=== PATIENT | male | born 1965 | race Caucasian/White ===

== ENCOUNTER 2020-11-09 22:38 | Inpatient (IN) | payer MEDICAID ==
[~2020-11-09] VITALS: Ht 172.7 cm; Wt 83.3 kg
[2020-11-10] MEDS ORDERED: ONDANSETRON HCL 4 MG/2 ML VIAL ONE (01:12)
[2020-11-10] MEDS ORDERED: KETOROLAC TROMETH 30 MG/ML 1ML VIAL IV ONE (01:15)
[2020-11-10] MEDS ORDERED: ONDANSETRON HCL 4 MG/2 ML VIAL IV ONE (01:15)
[2020-11-10] MEDS ORDERED: fentaNYL CITRATE 100 MCG/2 ML VL IV ONE (01:15)
[2020-11-10] MEDS ORDERED: SODIUM CHLORIDE 0.9% 1,000 ML IV ONE (01:15)
[2020-11-10 02:10] LABS: Eosinophils # (auto) 0.1 10 ^3/uL (0-0.8); Lymphocytes # (auto) 2.3 10 ^3/uL (0.4-5.4)
[2020-11-10 02:11] LABS: Basophils # (auto) 0 10 ^3/uL (0-0.2); Basophils % (auto) 0.3 % (0.0-2.0); Eosinophils % (auto) 0.5 % (0.0-7.0); Hematocrit 39.3 % (41.0-53.0); Hemoglobin 13.7 g/dL (13.5-17.5); Lymphocytes % (auto) 15.5 % (10.0-50.0); Mean Corpuscular Hemoglobin 34.4 pg (28.0-32.0); Mean Corpuscular Hgb Conc. 34.9 g/dL (32.0-36.0); Mean Corpuscular Volume 98.3 fL (80.0-100.0); Monocytes # (auto) 0.9 10 ^3/uL (0-1.3); Monocytes % (auto) 6.4 % (0.0-12.0); Neutrophils # (auto) 11.3 10 ^3/uL (1.6-8.6); Neutrophils % (auto) 77.3 % (37.0-80.0); Platelet Count (auto) 456 10^3/uL (140-450); Red Blood Cells 3.99 10^6/uL (4.5-5.90); Red Cell Distribution Width 13.1 % (11.8-14.3); White Blood Cell 14.7 10^3/uL (4.4-10.8)
[2020-11-10 02:23] LABS: INR 0.99 (0.9-1.15)
[2020-11-10 02:29] LABS: Albumin 3.6 g/dL (3.4-5.0); BUN/Creatinine Ratio 15.1; Calcium 8.5 mg/dL (8.5-10.1); Magnesium 2.2 mg/dL (1.6-2.6); Potassium 3.8 mmol/L (3.5-5.1)
[2020-11-10 02:31] LABS: Bilirubin, Total 0.2 mg/dL (0.2-1.0); Total Protein 7.2 g/dL (6.4-8.2)
[2020-11-10] MEDS ORDERED: ONDANSETRON HCL 4 MG/2 ML VIAL IV PRN (03:00)
[2020-11-10] MEDS ORDERED: chlordiazePOXIDE HCL 25 MG CAP PO PRN (03:15)
[2020-11-10] MEDS: HYDROcodone-ACET 5/325MG TAB PO PRN ×4 (09:18→21:15)
[2020-11-10] MEDS: FAMOTIDINE 20 MG TAB PO SCH ×2 (09:18→21:06)
[2020-11-10] MEDS: FOLIC ACID 1 MG, MAGNESIUM SULF SDV 50% 8 MEQ, THIAMINE INJ 100 MG in SODIUM CHLORIDE 0... INJ SCH (09:44)
[2020-11-10 10:02] LABS: Urine Bacteria NONE SEEN /hpf (None Seen); Urine Blood Negative /uL (Negative); Urine Specific Gravity 1.021 (1.001-1.035); Urine Sperm PRESENT /hpf (None Seen); Urine WBC <1 /hpf (0 - 3)
[2020-11-10 10:05] LABS: Amphetamine Screen, Urine POSITIVE (NEGATIVE); Barbiturate Scree,Urine NEGATIVE (NEGATIVE); Benzodiazephine Screen, Urine NEGATIVE (NEGATIVE); Cannabinoid Screen, Urine POSITIVE (NEGATIVE); Cocaine Screen, Urine NEGATIVE (NEGATIVE); Phencyclidine Screen, Urine NEGATIVE (NEGATIVE)
[2020-11-10 10:14] LABS: Opiate Scree,Urine NEGATIVE (NEGATIVE)
[2020-11-10] MEDS ORDERED: GABA250S2 PO (14:17)
[2020-11-10] MEDS: MORPHINE SULFATE 4 MG/ML SYR/VIAL IV PRN (15:16)
[2020-11-10 16:00] VITALS: BP 140/80
[2020-11-10 17:02] LABS: Hepatitis B Surface Antibody Negative
[2020-11-10 17:41] LABS: Hepatitis A Total Antibody Negative
[2020-11-10] MEDS ORDERED: FUROSEMIDE 20 MG/2 ML VIAL IV ONE (18:15)
[2020-11-10 18:28] LABS: Hepatitis B Surface Antigen Negative (Negative)
[2020-11-10 18:29] LABS: Hepatitis B Core Total AB Negative; Hepatitis C Antibody Negative (Negative)
[2020-11-10 22:04] VITALS: BP 132/88
[2020-11-11] MEDS: TEMAZEPAM 15 MG CAP PO PRN (00:19)
[2020-11-11] MEDS: HYDROcodone-ACET 5/325MG TAB PO PRN ×3 (02:45→21:35)
[2020-11-11 05:11] VITALS: BP 130/94
[2020-11-11 05:41] LABS: Eosinophils # (auto) 0.1 10 ^3/uL (0-0.8)
[2020-11-11 05:45] LABS: Basophils # (auto) 0.1 10 ^3/uL (0-0.2); Basophils % (auto) 0.4 % (0.0-2.0); Hematocrit 40.6 % (41.0-53.0); Hemoglobin 14.2 g/dL (13.5-17.5); Lymphocytes # (auto) 2.1 10 ^3/uL (0.4-5.4); Lymphocytes % (auto) 15.7 % (10.0-50.0); Mean Corpuscular Hemoglobin 34.1 pg (28.0-32.0); Mean Corpuscular Hgb Conc. 34.9 g/dL (32.0-36.0); Mean Corpuscular Volume 97.9 fL (80.0-100.0); Monocytes % (auto) 7.4 % (0.0-12.0); Neutrophils # (auto) 10.1 10 ^3/uL (1.6-8.6); Neutrophils % (auto) 75.5 % (37.0-80.0); Platelet Count (auto) 448 10^3/uL (140-450); Red Blood Cells 4.15 10^6/uL (4.5-5.90); Red Cell Distribution Width 13.2 % (11.8-14.3); White Blood Cell 13.4 10^3/uL (4.4-10.8)
[2020-11-11 05:59] LABS: BUN/Creatinine Ratio 10.4; Calcium 8.4 mg/dL (8.5-10.1); Potassium 3.7 mmol/L (3.5-5.1)
[2020-11-11] MEDS ORDERED: FUROSEMIDE 20 MG/2 ML VIAL IV SCH (06:00)
[2020-11-11] MEDS: MORPHINE SULFATE 4 MG/ML SYR/VIAL IV PRN ×3 (06:54→19:02)
[2020-11-11 08:00] VITALS: BP 151/87
[2020-11-11] MEDS: FAMOTIDINE 20 MG TAB PO SCH (10:31)
[2020-11-11] MEDS: ENOXAPARIN SOD 40 MG/0.4 ML SYRINGE SC SCH (11:38)
[2020-11-11] MEDS: FOLIC ACID 1 MG, MAGNESIUM SULF SDV 50% 8 MEQ, THIAMINE INJ 100 MG in SODIUM CHLORIDE 0... INJ SCH (15:38)
[2020-11-11 17:00] VITALS: BP 136/88
[2020-11-11] MEDS ORDERED: HCTZ 25 MG TAB PO ONE (17:00)
[2020-11-11 22:00] VITALS: BP 138/93
[2020-11-12 05:00] VITALS: BP 131/71
[2020-11-12 09:09] VITALS: BP 127/89
[2020-11-12] MEDS: HCTZ 25 MG TAB PO SCH (11:50)
[2020-11-12] MEDS: HYDROcodone-ACET 5/325MG TAB PO PRN (11:50)
[2020-11-12] MEDS: ENOXAPARIN SOD 40 MG/0.4 ML SYRINGE SC SCH (11:51)
[2020-11-12] MEDS: FOLIC ACID 1 MG, MAGNESIUM SULF SDV 50% 8 MEQ, THIAMINE INJ 100 MG in SODIUM CHLORIDE 0... INJ SCH (12:00)
[2020-11-12] MEDS: MORPHINE SULFATE 4 MG/ML SYR/VIAL IV PRN ×3 (13:17→22:21)
[2020-11-12] MEDS: FAMOTIDINE 20 MG TAB PO SCH ×2 (15:49→22:22)
[2020-11-12 17:00] VITALS: BP 115/71
[2020-11-12 22:00] VITALS: BP 123/85
[2020-11-13] MEDS: TEMAZEPAM 15 MG CAP PO PRN ×2 (00:14→20:31)
[2020-11-13] MEDS: MORPHINE SULFATE 4 MG/ML SYR/VIAL IV PRN ×4 (04:46→20:29)
[2020-11-13 05:00] VITALS: BP 132/77
[2020-11-13 08:00] VITALS: BP 102/68
[2020-11-13 08:48] LABS: Basophils # (auto) 0.1 10 ^3/uL (0-0.2); Hemoglobin 15.6 g/dL (13.5-17.5)
[2020-11-13 08:51] LABS: Basophils % (auto) 0.6 % (0.0-2.0); Eosinophils # (auto) 0.1 10 ^3/uL (0-0.8); Eosinophils % (auto) 1.2 % (0.0-7.0); Hematocrit 43.8 % (41.0-53.0); Lymphocytes # (auto) 2.6 10 ^3/uL (0.4-5.4); Lymphocytes % (auto) 22.1 % (10.0-50.0); Mean Corpuscular Hemoglobin 34.9 pg (28.0-32.0); Mean Corpuscular Hgb Conc. 35.5 g/dL (32.0-36.0); Mean Corpuscular Volume 98.2 fL (80.0-100.0); Monocytes # (auto) 1.2 10 ^3/uL (0-1.3); Monocytes % (auto) 10.4 % (0.0-12.0); Neutrophils # (auto) 7.8 10 ^3/uL (1.6-8.6); Neutrophils % (auto) 65.7 % (37.0-80.0); Nucleated Red Blood Cells % 0.1 %; Platelet Count (auto) 493 10^3/uL (140-450); Red Blood Cells 4.46 10^6/uL (4.5-5.90); Red Cell Distribution Width 13.1 % (11.8-14.3); White Blood Cell 11.9 10^3/uL (4.4-10.8)
[2020-11-13 09:15] LABS: Calcium 9.3 mg/dL (8.5-10.1)
[2020-11-13] MEDS: HCTZ 25 MG TAB PO SCH (09:48)
[2020-11-13] MEDS: FAMOTIDINE 20 MG TAB PO SCH ×2 (09:48→22:00)
[2020-11-13] MEDS ORDERED: cefTRIAXone 1GM/50ML D5W 50 ML IV ONE (15:45)
[2020-11-13 16:00] VITALS: BP 119/69
[2020-11-13] MEDS: HYDROcodone-ACET 5/325MG TAB PO PRN (18:11)
[2020-11-13 22:00] VITALS: BP 113/72
[2020-11-13] MEDS: ACETAMINOPHEN 325 MG TAB PO PRN (23:09)
[2020-11-14] MEDS: MORPHINE SULFATE 4 MG/ML SYR/VIAL IV PRN ×10 (00:49→22:33)
[2020-11-14 05:00] VITALS: BP 124/77
[2020-11-14] MEDS ORDERED: BUPIVACAINE 0.25% INJ 50ML VIAL ONE (07:08)
[2020-11-14] MEDS ORDERED: ceFAZolin 1GM/50ML 100 ML IV ONE (07:09)
[2020-11-14] MEDS ORDERED: BUPIVACAINE W/ EPINEPH 0.25% INJ 50ML MDV ONE (07:10)
[2020-11-14] MEDS ORDERED: TETRACAINE 1% INJ 2 ML VIAL IJ ONE (07:16)
[2020-11-14] MEDS ORDERED: LIDOCAINE 1% HCL (LOCAL ANESTH.) INJ 20ML MDV ONE (07:16)
[2020-11-14] MEDS ORDERED: ONDANSETRON HCL 4 MG/2 ML VIAL ONE (07:19)
[2020-11-14] MEDS ORDERED: SODIUM CHLORIDE LOCK 10 ML ONE (07:19)
[2020-11-14] MEDS ORDERED: PROPOFOL 10 MG/ML 20 ML IV ONE (07:19)
[2020-11-14] MEDS ORDERED: fentaNYL CITRATE 100 MCG/2 ML VL ONE (07:19)
[2020-11-14] MEDS ORDERED: MORPHINE SULF(PF) 0.5MG/ML 10ML VIAL ONE (07:19)
[2020-11-14] MEDS ORDERED: MIDAZOLAM HCL 1MG/1ML-2 ML VIAL ONE (07:19)
[2020-11-14] MEDS ORDERED: BUPIVACAINE/DEXTROSE MPF 0.75% 2 ML AMP IT ONE (07:25)
[2020-11-14] MEDS ORDERED: EPINEPHrine HCL 1 MG/1 ML AMP ONE (07:25)
[2020-11-14 08:00] VITALS: BP 103/70
[2020-11-14] MEDS ORDERED: KETAMINE HCL 10 ML ONE (08:33)
[2020-11-14] MEDS ORDERED: LIDOCAINE 2%HCL (LOCAL ANESTH.) INJ 20ML MDV ONE (08:40)
[2020-11-14] MEDS: cefTRIAXone 1GM/50ML D5W 50 ML IV SCH (09:00)
[2020-11-14] MEDS ORDERED: MORPHINE SULFATE 4 MG/ML SYR/VIAL IV PRN (09:30)
[2020-11-14] MEDS ORDERED: ONDANSETRON HCL 4 MG/2 ML VIAL IV PRN (09:30)
[2020-11-14] MEDS ORDERED: HYDROmorphone HCL 2 MG/ML VL IV PRN (09:30)
[2020-11-14] MEDS: LACTATED RINGER'S 1,000 ML IV SCH ×2 (10:00→19:15)
[2020-11-14] MEDS: ceFAZolin 1GM/50ML 50 ML IV SCH ×3 (10:00→21:04)
[2020-11-14] MEDS: FAMOTIDINE 20 MG TAB PO SCH ×2 (10:20→22:00)
[2020-11-14] MEDS: HCTZ 25 MG TAB PO SCH (10:20)
[2020-11-14] MEDS: ENOXAPARIN SOD 40 MG/0.4 ML SYRINGE SC SCH (10:20)
[2020-11-14] MEDS: SODIUM CHLOR 0.9% PF (SALINE LOCK) 10ML VIAL/SYR IV SCH ×2 (14:00→22:00)
[2020-11-14 16:00] VITALS: BP 130/79
[2020-11-14] MEDS: HYDROcodone-ACET 5/325MG TAB PO PRN (21:00)
[2020-11-14] MEDS: TEMAZEPAM 15 MG CAP PO PRN (21:00)
[2020-11-14 22:00] VITALS: BP 153/86
[2020-11-15] MEDS: MORPHINE SULFATE 4 MG/ML SYR/VIAL IV PRN ×4 (02:35→22:28)
[2020-11-15 05:00] VITALS: BP 117/76
[2020-11-15] MEDS: LACTATED RINGER'S 1,000 ML IV SCH ×2 (05:04→14:15)
[2020-11-15] MEDS: HYDROcodone-ACET 5/325MG TAB PO PRN ×2 (05:05→14:28)
[2020-11-15] MEDS: SODIUM CHLOR 0.9% PF (SALINE LOCK) 10ML VIAL/SYR IV SCH ×3 (05:33→22:27)
[2020-11-15 06:50] LABS: Basophils # (auto) 0 10 ^3/uL (0-0.2); Eosinophils # (auto) 0.2 10 ^3/uL (0-0.8); Eosinophils % (auto) 1.4 % (0.0-7.0); Monocytes # (auto) 1.6 10 ^3/uL (0-1.3)
[2020-11-15 07:02] LABS: Basophils % (auto) 0.3 % (0.0-2.0); Hematocrit 38.9 % (41.0-53.0); Hemoglobin 13.7 g/dL (13.5-17.5); Lymphocytes # (auto) 1.9 10 ^3/uL (0.4-5.4); Lymphocytes % (auto) 13.7 % (10.0-50.0); Mean Corpuscular Hemoglobin 34.4 pg (28.0-32.0); Mean Corpuscular Hgb Conc. 35.2 g/dL (32.0-36.0); Mean Corpuscular Volume 97.8 fL (80.0-100.0); Monocytes % (auto) 11.2 % (0.0-12.0); Neutrophils # (auto) 10.2 10 ^3/uL (1.6-8.6); Neutrophils % (auto) 73.4 % (37.0-80.0); Platelet Count (auto) 516 10^3/uL (140-450); Red Blood Cells 3.98 10^6/uL (4.5-5.90); Red Cell Distribution Width 12.8 % (11.8-14.3)
[2020-11-15 07:06] LABS: Potassium 3.7 mmol/L (3.5-5.1)
[2020-11-15 07:12] LABS: BUN/Creatinine Ratio 23.9; Calcium 8.4 mg/dL (8.5-10.1); Magnesium 2.2 mg/dL (1.6-2.6)
[2020-11-15 08:00] VITALS: BP 129/79
[2020-11-15] MEDS: FAMOTIDINE 20 MG TAB PO SCH ×2 (10:00→22:27)
[2020-11-15] MEDS: cefTRIAXone 1GM/50ML D5W 50 ML IV SCH (10:38)
[2020-11-15] MEDS: HCTZ 25 MG TAB PO SCH (10:53)
[2020-11-15] MEDS: ENOXAPARIN SOD 40 MG/0.4 ML SYRINGE SC SCH (10:58)
[2020-11-15] MEDS ORDERED: FOLIC ACID 1 MG TAB PO ONE (14:45)
[2020-11-15] MEDS ORDERED: THIAMINE HCL 100 MG TAB PO ONE (14:45)
[2020-11-15 16:00] VITALS: BP 124/63
[2020-11-15] MEDS: MULTIPLE VITAMIN TAB PO SCH (17:15)
[2020-11-15] MEDS ORDERED: FOLIC ACID 1 MG, MAGNESIUM SULF SDV 50% 8 MEQ, THIAMINE INJ 100 MG in SODIUM CHLORIDE 0... INJ SCH (18:00)
[2020-11-15 22:00] VITALS: BP_SYST 110; BP_SYST 124; BP_DIAS 74; BP_DIAS 75
[2020-11-15 22:20] VITALS: BP 122/74
[2020-11-15] MEDS: ACETAMINOPHEN 325 MG TAB PO PRN (23:35)
[2020-11-16 05:00] VITALS: BP 136/76
[2020-11-16 05:35] VITALS: BP 124/73
[2020-11-16 05:40] LABS: Basophils # (auto) 0.1 10 ^3/uL (0-0.2); Monocytes # (auto) 1.2 10 ^3/uL (0-1.3); Platelet Count (auto) 506 10^3/uL (140-450); Red Cell Distribution Width 12.8 % (11.8-14.3)
[2020-11-16] MEDS: SODIUM CHLOR 0.9% PF (SALINE LOCK) 10ML VIAL/SYR IV SCH ×3 (05:41→21:56)
[2020-11-16] MEDS: LACTATED RINGER'S 1,000 ML IV SCH (05:41)
[2020-11-16 05:42] LABS: Basophils % (auto) 0.5 % (0.0-2.0); Eosinophils # (auto) 0.3 10 ^3/uL (0-0.8); Eosinophils % (auto) 2.6 % (0.0-7.0); Hematocrit 38.4 % (41.0-53.0); Hemoglobin 13.7 g/dL (13.5-17.5); Lymphocytes # (auto) 2.3 10 ^3/uL (0.4-5.4); Lymphocytes % (auto) 21.5 % (10.0-50.0); Mean Corpuscular Hemoglobin 34.9 pg (28.0-32.0); Mean Corpuscular Hgb Conc. 35.8 g/dL (32.0-36.0); Mean Corpuscular Volume 97.7 fL (80.0-100.0); Monocytes % (auto) 11.9 % (0.0-12.0); Neutrophils # (auto) 6.7 10 ^3/uL (1.6-8.6); Neutrophils % (auto) 63.5 % (37.0-80.0); Red Blood Cells 3.93 10^6/uL (4.5-5.90); White Blood Cell 10.5 10^3/uL (4.4-10.8)
[2020-11-16] MEDS: MORPHINE SULFATE 4 MG/ML SYR/VIAL IV PRN ×4 (05:42→20:50)
[2020-11-16 08:00] VITALS: BP 138/61
[2020-11-16] MEDS ORDERED: LACTULOSE 20Gm/30ML SOLN PO ONE (09:45)
[2020-11-16] MEDS: ENOXAPARIN SOD 40 MG/0.4 ML SYRINGE SC SCH (09:55)
[2020-11-16] MEDS: DOCUSATE SOD 100 MG CAP PO SCH ×2 (09:55→21:56)
[2020-11-16] MEDS: MULTIPLE VITAMIN TAB PO SCH (09:55)
[2020-11-16] MEDS: FAMOTIDINE 20 MG TAB PO SCH ×2 (09:55→21:56)
[2020-11-16] MEDS: cefTRIAXone 1GM/50ML D5W 50 ML IV SCH (09:55)
[2020-11-16] MEDS: HCTZ 25 MG TAB PO SCH (09:57)
[2020-11-16] MEDS ORDERED: FOLIC ACID 1 MG TAB PO SCH (10:00)
[2020-11-16] MEDS ORDERED: THIAMINE HCL 100 MG TAB PO SCH (10:00)
[2020-11-16] MEDS ORDERED: LOSARTAN POTASSIUM 25 MG TAB PO ONE (11:30)
[2020-11-16 16:00] VITALS: BP 124/85
[2020-11-16 20:30] VITALS: BP 135/83
[2020-11-16] MEDS: ACETAMINOPHEN 325 MG TAB PO PRN (21:57)
[2020-11-16 22:00] VITALS: BP 135/83
[2020-11-17] MEDS: MORPHINE SULFATE 4 MG/ML SYR/VIAL IV PRN ×4 (03:39→19:49)
[2020-11-17 05:00] VITALS: BP 133/78
[2020-11-17] MEDS: SODIUM CHLOR 0.9% PF (SALINE LOCK) 10ML VIAL/SYR IV SCH ×3 (06:19→21:19)
[2020-11-17 08:00] VITALS: BP 119/85
[2020-11-17] MEDS: cefTRIAXone 1GM/50ML D5W 50 ML IV SCH (10:05)
[2020-11-17] MEDS: DOCUSATE SOD 100 MG CAP PO SCH ×2 (10:10→21:20)
[2020-11-17] MEDS: MULTIPLE VITAMIN TAB PO SCH (10:10)
[2020-11-17] MEDS: ENOXAPARIN SOD 40 MG/0.4 ML SYRINGE SC SCH (10:11)
[2020-11-17] MEDS: FAMOTIDINE 20 MG TAB PO SCH ×2 (10:12→21:20)
[2020-11-17] MEDS: LOSARTAN POTASSIUM 25 MG TAB PO SCH (10:13)
[2020-11-17 16:00] VITALS: BP 135/85
[2020-11-17 19:46] VITALS: BP 129/74
[2020-11-17] MEDS: ACETAMINOPHEN 325 MG TAB PO PRN (21:20)
[2020-11-18 02:00] VITALS: BP 120/73
[2020-11-18] MEDS: MORPHINE SULFATE 4 MG/ML SYR/VIAL IV PRN ×3 (02:10→13:11)
[2020-11-18 05:00] VITALS: BP 116/74
[2020-11-18] MEDS: SODIUM CHLOR 0.9% PF (SALINE LOCK) 10ML VIAL/SYR IV SCH ×2 (05:13→14:00)
[2020-11-18 08:00] VITALS: BP 123/76
[2020-11-18] MEDS: cefTRIAXone 1GM/50ML D5W 50 ML IV SCH (09:23)
[2020-11-18] MEDS: FAMOTIDINE 20 MG TAB PO SCH (09:23)
[2020-11-18] MEDS: MULTIPLE VITAMIN TAB PO SCH (09:24)
[2020-11-18] MEDS: DOCUSATE SOD 100 MG CAP PO SCH (09:25)
[2020-11-18] MEDS: ENOXAPARIN SOD 40 MG/0.4 ML SYRINGE SC SCH (09:25)
[2020-11-18] MEDS: LOSARTAN POTASSIUM 25 MG TAB PO SCH (09:25)
[2020-11-18 13:36] VITALS: BP 123/76
[2020-11-18 16:00] VITALS: BP 140/73
== END 2020-11-18 16:41 | disposition home or self-care (01) | DRG 313 ==
LOC: EDUNIT# 22:38 → EDBD 22:38 → ER 22:41 → OVERFLOW 22:42 → CENTRAL 11-10 12:12
PROVIDERS: ADMIT Nurse Practitioner; ATTEND Internal Medicine Nephrology
PROC: BW1C1ZZ Fluoroscopy of Lower Extremity using Low Osmolar Contrast (ICD-10-PCS; 2020-11-14)
PROC: 0QSG35Z Reposition Right Tibia with External Fixation Device, Percutaneous Approach (ICD-10-PCS; principal; 2020-11-14 08:29)
DX: S82.871A Displaced pilon fracture of right tibia, initial encounter for closed fracture (principal); I50.31 Acute diastolic (congestive) heart failure; R65.10 Systemic inflammatory response syndrome (SIRS) of non-infectious origin without acute organ dysfunction; S82.451A Displaced comminuted fracture of shaft of right fibula, initial encounter for closed fracture; F10.129 Alcohol abuse with intoxication, unspecified; I11.0 Hypertensive heart disease with heart failure; E87.1 Hypo-osmolality and hyponatremia; Z20.822 Contact with and (suspected) exposure to COVID-19; F12.90 Cannabis use, unspecified, uncomplicated; F15.10 Other stimulant abuse, uncomplicated; F17.210 Nicotine dependence, cigarettes, uncomplicated; E78.5 Hyperlipidemia, unspecified; W11.XXXA Fall on and from ladder, initial encounter; Z83.3 Family history of diabetes mellitus; Z91.19 Patient's noncompliance with other medical treatment and regimen; Y99.8 Other external cause status; Z91.81 History of falling; Y93.39 Activity, other involving climbing, rappelling and jumping off; Y92.89 Other specified places as the place of occurrence of the external cause
CPT/HCPCS: 36415; 71045; 73600; 73610; 73700; 76000; 80048; 80053; 80307; 80320; 81001; 83036; 83735; 83880; 85025; 85610; 86703; 86704; 86706; 86708; 86803; 86850; 86900; 86901; 87340; 87426; 93306; 96361; 96374; 96375; 97116; 97163; 97530; G0378; J0171; J0690; J0696; J1885; J2001; J2250; J2405; J2704; J3490